=== PATIENT | male | born 1945 | race Caucasian/White ===

== ENCOUNTER → 2017-08-07 | Day surgery (SDC) | payer OTHER ==
[~2017-08-07] VITALS: Ht 203.2 cm; Wt 90.7 kg
[~2017-08-07] MED LIST: ASPIRIN325 PO; CELEXA40 MG PO; FLOMAX0.4 MG PO; LYRICA 75 MG CA75 MG PO; LYRICA200 MG PO; METHADONE HCL 110 M1 PO; OMEGA-31000 M1 PO; PRAVACHOL40 MG PO; PRESERVISION A1 EAC2 PO; PROSCAR 5MG TABL5 MG PO; ROBAXIN 750 MG750 M1 PO; TRAZODONE HCL100 MG PO; VITAMIN B COMP1 EACH PO; VITAMIN D-32000 UNIT PO; VITAMINC500 PO; [UNRECOGNIZED DRUG - OTHER] PO
[2017-08-07 10:45] VITALS: BP 107/86
== END | disposition home or self-care (01) ==
LOC: OR 05:26
DX: H02.403 Unspecified ptosis of bilateral eyelids (principal); E78.5 Hyperlipidemia, unspecified; F32.89 Other specified depressive episodes; F41.8 Other specified anxiety disorders; Z87.891 Personal history of nicotine dependence; Z98.890 Other specified postprocedural states; Z98.41 Cataract extraction status, right eye; Z98.42 Cataract extraction status, left eye; Z88.7 Allergy status to serum and vaccine; Z91.041 Radiographic dye allergy status; Z88.8 Allergy status to other drugs, medicaments and biological substances; Z79.82 Long term (current) use of aspirin; Z79.899 Other long term (current) drug therapy
CPT/HCPCS: 50010; 64037